=== PATIENT | female | born 1950 ===

== ENCOUNTER 2022-02-19 17:40 | Emergency (ER) | payer MEDICARE, OTHER ==
[~2022-02-19] VITALS: Ht 157.5 cm; Wt 54.4 kg
[2022-02-19 18:41] VITALS: BP 170/96
== END 2022-02-19 21:55 | disposition home or self-care (01) ==
LOC: ER 17:40
DX: F10.20 Alcohol dependence, uncomplicated (principal); Y90.8 Blood alcohol level of 240 mg/100 ml or more